=== PATIENT | female | born 1995 | race Caucasian/White ===

== ENCOUNTER → 2016-04-13 | Outpatient (CLI) | payer BC ==
--- NOTE | 2016-04-13 21:06 | REP ---
Clinical: Anatomical evaluation. Comparison: None . Findings: Examination demonstrates a single live intrauterine in cephalic presentation. motion is identified by technologist. Placenta is noted anteriorly and grade zero with suggestion for single synechiae. There is no evidence for placenta previa or abruption. Amniotic fluid volume is normal. Cervix measures 4.0 cm in length and appears closed. No evidence for nuchal cord. Gestational age by LMP 18 weeks 6 days with RAJWINDER 09/08/2016 . Gestational age by current measurements 18 weeks 6 days with RAJWINDER 09/08/2016 . FHR equals 147 beats per minute. BPD 4.5 18 weeks 5 days HC 16.1 19 weeks 0 days AC 13.1 18 weeks 4 days FL 2.8 18 weeks 5 days HL 2.8 19 weeks 0 days HC/AC ratio 1.23 Estimated weight 253 grams ( 40th percentile). Anatomical assessment demonstrates normal structures including cranium, choroid plexus, cavum, cerebellum/posterior fossa, facial features, lungs, four-chamber heart/ventricular outflow tracts, diaphragm, stomach, cord insertion/three-vessel cord, kidneys/bladder, spine, and extremities. Impression: 1. Single live intrauterine in cephalic presentation demonstrating appropriate interval growth. 2. Anatomical assessment is complete and normal. 3. Placental synechia less likely circumvallate appearance. Signed by Dharmesh Carrillo MD 04/13/2016 08:57 P
== END ==
LOC: M SMT 14:46
PROVIDERS: ATTEND Advanced Practice Midwife
DX: Z36 Encounter for antenatal screening of mother (principal); Z3A.18 18 weeks gestation of pregnancy

== ENCOUNTER → 2016-05-11 | Outpatient (REF) | payer BC | LOC: M LAB REF 16:53 | PROVIDERS: ATTEND Advanced Practice Midwife | DX: R10.30 Lower abdominal pain, unspecified (principal); Z36 Encounter for antenatal screening of mother ==

== ENCOUNTER → 2016-06-08 | Outpatient (CLI) | payer OTHER ==
[2016-06-08 19:22] LABS: BASO % 0.2 % (0.0-1.0); EOS # 0.1 K/mm3 (0.0-0.50); EOS % 0.9 % (0.0-3.0); LARGE UNSTAINED CELL # 0.1 K/mm3 (0.0-0.4); LYMPH # 1.5 K/mm3 (1.5-6.5); LYMPH % 12.2 % (24.0-44.0); MEAN CORPUSCULAR HEMOGLOBIN 31.4 pg (27.0-33.0); MEAN CORPUSCULAR VOLUME 95.2 fl (80.0-96.0); MONO # 0.8 K/mm3 (0.0-0.8); MONO % 7.1 % (0.0-5.0); NEUTROPHILS # 8.8 K/mm3 (1.8-7.7); NEUTROPHILS % 78.6 % (36.0-66.0); PLATELET COUNT, AUTOMATED 254 k/mm3 (150-450); RED CELL DISTRIBUTION WIDTH 12.8 % (11.5-14.5); WHITE BLOOD COUNT 11.2 K/mm3 (4.0-10.0)
== END ==
LOC: M SMT 13:29
PROVIDERS: ATTEND Advanced Practice Midwife
DX: Z34.83 Encounter for supervision of other normal pregnancy, third trimester (principal)

== ENCOUNTER 2016-07-18 08:45 | Outpatient (CLI) | payer OTHER ==
[~2016-07-18] VITALS: Ht 165.1 cm; Wt 74.0 kg
[2016-07-18] MEDS ORDERED: NITROFURANTOIN (MACROBID) 100 MG CAP PO SCH (09:00)
[2016-07-18] MEDS ORDERED: PRENTAB9 PO (09:30)
[2016-07-18 11:04] VITALS: BP 118/68
[2016-07-18] MEDS ORDERED: LR 1,000 ML IV SCH (11:15)
[2016-07-18] MEDS ORDERED: LACTATED RINGER'S 1000 ML IV ONE (11:15)
[2016-07-18 12:10] VITALS: BP 119/70
[2016-07-18 12:22] LABS: MEAN CORPUSCULAR HEMOGLOBIN 31.2 pg (27.0-33.0); MEAN CORPUSCULAR HGB CONC 34.2 g/dl (32.0-36.5); MEAN CORPUSCULAR VOLUME 91.2 fl (80.0-96.0); RED CELL DISTRIBUTION WIDTH 12.6 % (11.5-14.5); WHITE BLOOD COUNT 12.6 K/mm3 (4.0-10.0)
== END 2016-07-18 14:12 | disposition home or self-care (01) ==
LOC: M LDO 08:45
PROVIDERS: ATTEND Advanced Practice Midwife
DX: O62.0 Primary inadequate contractions (principal); O23.43 Unspecified infection of urinary tract in pregnancy, third trimester; Z3A.32 32 weeks gestation of pregnancy; O99.343 Other mental disorders complicating pregnancy, third trimester; F33.9 Major depressive disorder, recurrent, unspecified; F41.9 Anxiety disorder, unspecified

== ENCOUNTER → 2016-08-10 | Outpatient (REF) | payer OTHER ==
[~2016-08-10] MED LIST: PRENTAB9 PO
== END ==
LOC: M LAB REF 13:07
PROVIDERS: ATTEND Advanced Practice Midwife
DX: Z34.83 Encounter for supervision of other normal pregnancy, third trimester (principal)

== ENCOUNTER 2016-09-08 20:47 | Inpatient (IN) | payer OTHER ==
[~2016-09-08] VITALS: Ht 165.1 cm; Wt 82.0 kg
[2016-09-08 20:59] VITALS: BP 122/60
[2016-09-08 22:58] LABS: MEAN CORPUSCULAR HEMOGLOBIN 29.7 pg (27.0-33.0); MEAN CORPUSCULAR HGB CONC 33.1 g/dl (32.0-36.5); MEAN CORPUSCULAR VOLUME 89.5 fl (80.0-96.0); WHITE BLOOD COUNT 15.9 K/mm3 (4.0-10.0)
--- NOTE | 2016-09-08 23:48 | HPE ---
DATE OF ADMISSION: 09/08/2016 A 21-year-old 1 at 40-0/7 weeks gestation by last menstrual period (LMP) consistent with 9-week ultrasound, estimated date of confinement (EDC) 09/08/2016, presents with regular contractions every 2-3 minutes for the entire day. They finally began to increase in intensity. She denies vaginal bleeding. There is good movement. COURSE: The patient initiated care at 9 weeks gestation, 02/11/2016. Her first trimester blood pressure was 104/64, weight 154 pounds. Her course was unremarkable. MEDICAL HISTORY: Depression, anxiety. SURGERIES: Tonsillectomy. ALLERGIES: CODEINE and ACETAMINOPHEN. SOCIAL HISTORY: The patient is . She denies cigarettes, alcohol or drug use. FAMILY HISTORY: Noncontributory. PHYSICAL EXAMINATION: Blood pressure 116/76, pulse 84. She appears moderately uncomfortable. Head and neck exam: Normal. Lungs: Clear. Heart: Regular rate and rhythm. Abdomen: Nontender, gravid. heart tones: Category 1. Contractions: Every 2-3 minutes. Sterile vaginal exam: 3 cm, 90% effaced, -2 station, vertex, intact. Extremities: Nontender. LABORATORY: A+, rubella immune, RPR nonreactive. Hepatitis B and C negative. HIV negative. GBS negative on 08/10/2016. ASSESSMENT: A 21-year-old 1 at 40-0/7 weeks gestation, presents in early labor. The patient was admitted on 09/08/2016.
[2016-09-08] MEDS ORDERED: FENTANYL 2MCG/ML ROPIVACAINE 0.2% IN 0.9% NACL 200ML IVBAG As Ordered ONE (23:51)
[2016-09-09] VITALS (33 sets, daily range): BP systolic 95–130; BP diastolic 50–70
[2016-09-09] MEDS ORDERED: ONDANSETRON 4MG/2ML VIAL (J2405) IV PRN ×2 (00:40→06:30)
[2016-09-09] MEDS ORDERED: LACTATED RINGER'S 1000 ML IV PRN (00:40)
[2016-09-09] MEDS ORDERED: FENTANYL/ROPIVACAINE/NACL BAG 200 ML EPIDURAL SCH (00:40)
[2016-09-09] MEDS ORDERED: EPIDURAL/PCA KEYS XX PRN (00:40)
[2016-09-09] MEDS ORDERED: NALOXONE INJ 0.4 MG/1 ML VIAL (J2310) IV PRN (00:40)
[2016-09-09] MEDS ORDERED: diphenhydrAMINE INJ 50MG/ML VIAL (J1200) IV PRN (00:40)
[2016-09-09] MEDS ORDERED: REFRIGERATOR IV KEYS XX PRN (00:40)
[2016-09-09] MEDS ORDERED: EPIDURAL COMMENT XX SCH (00:40)
[2016-09-09] MEDS ORDERED: OXYTOCIN DRIP 30 UNITS in APPROPRIATE DILUENT 1 EA IV SCH (01:45)
[2016-09-09] MEDS: ePHEDrine SULFATE 25 MG/5 ML(5MG/ML) SYRINGE IV PRN ×3 (02:09→03:58)
--- NOTE | 2016-09-09 06:24 | DN ---
DATE OF DELIVERY: 09/09/2016 PREDELIVERY DIAGNOSIS: 40 weeks gestation, labor. POSTDELIVERY DIAGNOSIS: Delivered. PROCEDURE: Outlet vacuum-assisted vaginal delivery. ASSISTANT READING TEACHER: Dr. Chase Zeng. ANESTHESIA: Epidural. ESTIMATED BLOOD LOSS: 300 mL. FINDINGS: Six pound six ounce female with scores eight and night. DELIVERY SUMMARY: After a 30-minute second stage, the patient had arrest of descent on the perineum. The vacuum was applied and delivery was accomplished on a single controlled traction along with maternal effort of a six pound six ounce , scores eight and nine. There was no nuchal cord. Shoulders delivered with ease. The cried spontaneously and was handed to the mother. Cord was doubly clamped and cut. Placenta delivered spontaneously and appeared to be intact. There were no vaginal lacerations present. The patient receive intravenous (IV) Pitocin after delivery of placenta. Sponge counts were correct.
[2016-09-09] MEDS ORDERED: DIBUCAINE 1% OINTMENT 30GM TOP PRN (06:30)
[2016-09-09] MEDS ORDERED: RHOGAM 300 MCG (1500 IU) INJ (J2790) IM SCH (06:30)
[2016-09-09] MEDS ORDERED: METHYLERGONOVINE MALEATE 0.2 MG TAB PO PRN (06:30)
[2016-09-09] MEDS ORDERED: MEASLES,MUMPS,RUBELLA VACCINE INJ (MMR-II) (90707) SC SCH (06:30)
[2016-09-09] MEDS ORDERED: DOCUSATE SODIUM 100 MG CAP PO PRN (06:30)
[2016-09-09] MEDS ORDERED: OXYTOCIN DRIP 30 UNITS in APPROPRIATE DILUENT 1 EA IV ONE (06:30)
[2016-09-09] MEDS: PRENATAL VITAMIN TAB PO SCH (08:26)
[2016-09-09] MEDS: IBUPROFEN 800 MG TAB PO PRN (12:17)
[2016-09-10 05:32] VITALS: BP 130/66
[2016-09-10] MEDS: PRENATAL VITAMIN TAB PO SCH (07:43)
[2016-09-10 18:11] VITALS: BP 131/66
[2016-09-10] MEDS: IBUPROFEN 800 MG TAB PO PRN (23:36)
[2016-09-11 05:40] VITALS: BP 131/65
[2016-09-11] MEDS: PRENATAL VITAMIN TAB PO SCH (09:00)
[2016-09-11] MEDS ORDERED: IBUP-1114 PO (09:42)
== END 2016-09-11 11:05 | disposition home or self-care (01) | DRG 775 ==
LOC: M LDO 20:47 → M LDI 21:47 → M OBS 09-09 07:10
PROVIDERS: ADMIT Specialist; ATTEND Specialist
PROC: 10D07Z6 Extraction of Products of Conception, Vacuum, Via Natural or Artificial Opening (ICD-10-PCS; principal; 2016-09-09)
DX: O32.4XX0 Maternal care for high head at term, not applicable or unspecified (principal); Z37.0 Single live birth; Z3A.40 40 weeks gestation of pregnancy; Z88.5 Allergy status to narcotic agent; Z88.8 Allergy status to other drugs, medicaments and biological substances; O48.0 Post-term pregnancy